=== PATIENT | female | born 2000 | race African-American/Black ===

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

== ENCOUNTER 2020-03-28 09:34 | Emergency (ER) | payer OTHER ==
[~2020-03-28] VITALS: Ht 154.9 cm; Wt 54.4 kg
[~2020-03-28 09:34] MED LIST: IRON325 PO; MOBIC7.5 MG PO; PHENERGAN 25 MG25 M1 PO
[2020-03-28 10:04] LABS: HEMATOCRIT 28.9 % (37.0-47.0); HEMOGLOBIN 8.9 gm/dL (12.0-15.0); MCH 20.6 pg (26.0-34.0); MCHC 30.7 g/dL (28.0-37.0); MCV 67.3 fL (80.0-100.0); PLATELET COUNT 343 thou/uL (150-400); RDW 17.3 % (10.5-14.5); WBC 6.7 thou/uL (4.0-11.0)
[2020-03-28 10:24] LABS: URINE CLARITY CLOUDY; URINE COLOR RED
[2020-03-28 10:26] LABS: CREATININE 0.9 mg/dL (0.6-1.0); POTASSIUM 3.8 mmol/L (3.5-5.1)
[2020-03-28 10:28] LABS: ICTOTEST (BILI CONFIRMATORY) Negative (Negative)
[2020-03-28 10:32] LABS: ALBUMIN 4.1 g/dL (3.4-5.0); TOTAL BILIRUBIN 0.7 mg/dL (0.2-1.0); TOTAL PROTEIN 7.6 g/dL (6.4-8.2)
[2020-03-28 10:35] LABS: URINE REDUCING SUBSTANCE Negative
[2020-03-28 10:42] LABS: SSA (PROTEIN CONFIRMATORY) 3+ (APPROX. 200-500) mg/dL (Negative)
[2020-03-28 10:44] LABS: SQUAMOUS 4-10 Moderate /LPF (0-3); URINE RBC >20 Many /HPF (0-2); URINE WBC-REFLEX 6-15 Few /HPF (0-5)
[2020-03-28 10:45] LABS: CASTS None Seen /LPF (None Seen); CRYSTALS None Seen /LPF (None Seen)
[2020-03-28 10:46] LABS: WBC CLUMPS Few (None Seen)
[2020-03-28 11:03] LABS: ABSOLUTE NEUTROPHILS 5.2 thou/uL (1.4-8.2); ANISOCYTOSIS 2+; HYPOCHROMASIA 2+; MICROCYTES 2+; PLATELET ESTIMATE NORMAL
[2020-03-28 11:04] LABS: OVALOCYTES OCCASIONAL; POIKILOCYTOSIS SLIGHT
[2020-03-28] MEDS ORDERED: NAPROSYN500 MG PO (12:04)
[2020-03-28 12:21] VITALS: BP 105/60
== END 2020-03-28 12:21 | disposition home or self-care (01) ==
LOC: ER 09:34
PROVIDERS: Emergency Medicine
DX: N94.6 Dysmenorrhea, unspecified (principal); R10.30 Lower abdominal pain, unspecified

== ENCOUNTER 2020-04-23 14:04 | Emergency (ER) | payer OTHER ==
[~2020-04-23] VITALS: Ht 154.9 cm; Wt 54.4 kg
[~2020-04-23 14:04] MED LIST changes: +NAPROSYN500 MG PO
[2020-04-23 14:22] LABS: URINE BILIRUBIN NEGATIVE (Negative); URINE BLOOD 3+ (Negative); URINE CLARITY CLOUDY; URINE COLOR RED; URINE GLUCOSE-RANDOM* NEGATIVE (Negative); URINE KETONES TRACE (Negative); URINE LEUKOCYTES-REFLEX TRACE (Negative); URINE NITRITE-REFLEX NEGATIVE (Negative); URINE PROTEIN (DIPSTICK) 2+ (Negative); URINE SPECIFIC GRAVITY >= 1.030 (1.005-1.035); URINE UROBILINOGEN 0.2 E.U./dl (0.2-1.0)
[2020-04-23 14:25] LABS: BACTERIA-REFLEX None Seen /HPF (None Seen); CASTS None Seen /LPF (None Seen); CRYSTALS None Seen /LPF (None Seen); SQUAMOUS None Seen /LPF (0-3); URINE RBC >20 Many /HPF (0-2); URINE WBC-REFLEX 6-15 Few /HPF (0-5)
[2020-04-23 15:22] LABS: HEMATOCRIT 28.4 % (37.0-47.0); HEMOGLOBIN 8.9 gm/dL (12.0-15.0); MCH 21.1 pg (26.0-34.0); MCHC 31.4 g/dL (28.0-37.0); MCV 67.1 fL (80.0-100.0); RBC 4.23 mil/uL (4.20-5.00); RDW 17.9 % (10.5-14.5); WBC 5.8 thou/uL (4.0-11.0)
[2020-04-23 15:31] LABS: CALCIUM 8.6 mg/dL (8.5-10.1); CREATININE 0.9 mg/dL (0.6-1.0); POTASSIUM 3.6 mmol/L (3.5-5.1)
[2020-04-23] MEDS ORDERED: TORADOL 10 MG T10 MG PO (15:51)
[2020-04-23] MEDS ORDERED: KEFLEX500 M1 PO (15:53)
[2020-04-23 16:28] VITALS: BP 104/56
== END 2020-04-23 16:29 | disposition home or self-care (01) ==
LOC: ER 14:04
PROVIDERS: Physician Assistant
DX: N94.6 Dysmenorrhea, unspecified (principal); N39.0 Urinary tract infection, site not specified; Z90.721 Acquired absence of ovaries, unilateral

== ENCOUNTER 2020-05-18 14:27 | Emergency (ER) | payer OTHER ==
[~2020-05-18] VITALS: Ht 154.9 cm; Wt 54.4 kg
[~2020-05-18 14:27] MED LIST changes: +KEFLEX500 M1 PO; +TORADOL 10 MG T10 MG PO
[2020-05-18 14:40] LABS: URINE BILIRUBIN NEGATIVE (Negative); URINE BLOOD 3+ (Negative); URINE CLARITY CLOUDY; URINE COLOR YELLOW; URINE GLUCOSE-RANDOM* NEGATIVE (Negative); URINE KETONES TRACE (Negative); URINE LEUKOCYTES-REFLEX NEGATIVE (Negative); URINE NITRITE-REFLEX NEGATIVE (Negative); URINE PROTEIN (DIPSTICK) 1+ (Negative); URINE SPECIFIC GRAVITY 1.015 (1.005-1.035); URINE UROBILINOGEN 0.2 E.U./dl (0.2-1.0)
[2020-05-18 14:53] LABS: BACTERIA-REFLEX 1-9 Few /HPF (None Seen); CASTS None Seen /LPF (None Seen); CRYSTALS None Seen /LPF (None Seen); SQUAMOUS None Seen /LPF (0-3); URINE RBC >20 Many /HPF (0-2); URINE WBC-REFLEX 6-15 Few /HPF (0-5)
[2020-05-18 17:44] LABS: ABSOLUTE NEUTROPHILS 7.1 thou/uL (1.4-8.2); BASOPHILS 0.9 % (0.0-2.0); HEMATOCRIT 30.6 % (37.0-47.0); HEMOGLOBIN 9.5 gm/dL (12.0-15.0); LYMPHOCYTES 9.1 % (24.0-44.0); MCHC 30.9 g/dL (28.0-37.0); MCV 67.8 fL (80.0-100.0); MONOCYTES 5.7 % (1.0-8.0); PLATELET COUNT 348 thou/uL (150-400); POLYS 84.3 % (36.0-66.0); RBC 4.51 mil/uL (4.20-5.00); RDW 17.7 % (10.5-14.5); WBC 8.4 thou/uL (4.0-11.0)
[2020-05-18 17:50] LABS: CALCIUM 9.4 mg/dL (8.5-10.1); CREATININE 0.8 mg/dL (0.6-1.0); POTASSIUM 3.8 mmol/L (3.5-5.1)
[2020-05-18 17:57] LABS: ALBUMIN 4.2 g/dL (3.4-5.0); TOTAL BILIRUBIN 0.7 mg/dL (0.2-1.0); TOTAL PROTEIN 7.9 g/dL (6.4-8.2)
[2020-05-18] MEDS ORDERED: TORADOL 10 MG T10 MG PO (18:04)
[2020-05-18] MEDS ORDERED: KEFLEX500 M1 PO (18:04)
[2020-05-18] MEDS ORDERED: ONDANSETRON HCL4 M2 PO (18:04)
[2020-05-18 18:12] LABS: PLATELET ESTIMATE NORMAL
[2020-05-18 18:13] LABS: ANISOCYTOSIS 1+; HYPOCHROMASIA 1+; MICROCYTES 2+
[2020-05-18 18:16] VITALS: BP 99/68
--- NOTE | 2020-05-19 08:49 | EKG ---
[facility] [place] [address] ELECTROCARDIOGRAM REPORT Name: ROGERIO YEBOAH Room #: [id number] Admission: 05/18/20 Attend Phys: Discharge: 05/18/20 Date of : [birth year] Report #: [id number] THIS REPORT FOR: cc: [place] - Claudia family physician/PCP ROOSEV[place]T - Claudia family physician/PCP Vincent Christensen MD [facility] THIS REPORT FOR: //name// [facility] ED Test Date: 2020-05-18 Test Time: 18:12:33 Pat Name: ROGERIO YEBOAH Department: Room: Gender: F [employer] Supervisor: : 2000 Requested By: Jacquelyn Nava Order Number: [id number] MD: Vincent Christensen Measurements Intervals [place] Rate: 75 P: 49 CA: 131 QRS: 59 QRSD: 123 T: 33 QT: 409 QTc: 457 Interpretive Statements Sinus arrhythmia Right ventricular conduction delay No previous ECG available for comparison Electronically Signed On 05-19-2020 8:49:42 CDT by Vincent Christensen [email or web address] <ELECTRONICALLY SIGNED> By: Vincent Christensen MD, FAC 05/19/20 0849 11 11 Vincent Christensen MD, [facility] /EPI
== END 2020-05-18 18:17 | disposition home or self-care (01) ==
LOC: ER 14:27
PROVIDERS: Physician Assistant
DX: N39.0 Urinary tract infection, site not specified (principal); N94.6 Dysmenorrhea, unspecified; R11.2 Nausea with vomiting, unspecified; R55 Syncope and collapse; R06.02 Shortness of breath; Z90.721 Acquired absence of ovaries, unilateral; Z79.899 Other long term (current) drug therapy; Z79.2 Long term (current) use of antibiotics

== ENCOUNTER 2020-05-31 13:28 | Emergency (ER) | payer OTHER ==
[~2020-05-31] VITALS: Ht 154.9 cm; Wt 54.4 kg
[~2020-05-31 13:28] MED LIST changes: +ONDANSETRON HCL4 M2 PO
[2020-05-31 13:37] VITALS: BP 99/55
[2020-05-31] MEDS ORDERED: DIFLUCAN150 MG PO (15:23)
== END 2020-05-31 16:10 ==
LOC: ER 13:28
DX: B37.3 Candidiasis of vulva and vagina (principal); L73.9 Follicular disorder, unspecified; Z90.721 Acquired absence of ovaries, unilateral; Z79.899 Other long term (current) drug therapy; Z79.2 Long term (current) use of antibiotics

== ENCOUNTER 2020-08-06 06:32 | Emergency (ER) | payer OTHER ==
[~2020-08-06] VITALS: Ht 154.9 cm; Wt 47.6 kg
[~2020-08-06 06:32] MED LIST changes: +DIFLUCAN150 MG PO
[2020-08-06 07:02] LABS: ABSOLUTE NEUTROPHILS 2.6 thou/uL (1.4-8.2); BASOPHILS 1.4 % (0.0-2.0); EOSINOPHILS 0.6 % (0.0-3.0); HEMOGLOBIN 9.5 gm/dL (12.0-15.0); LYMPHOCYTES 27.7 % (24.0-44.0); MCH 21.1 pg (26.0-34.0); MCHC 30.7 g/dL (28.0-37.0); MCV 68.8 fL (80.0-100.0); MONOCYTES 9.2 % (1.0-8.0); PLATELET COUNT 363 thou/uL (150-400); POLYS 61.1 % (36.0-66.0); RDW 18.2 % (10.5-14.5); WBC 4.3 thou/uL (4.0-11.0)
[2020-08-06 07:16] LABS: CALCIUM 9.3 mg/dL (8.5-10.1); CREATININE 0.9 mg/dL (0.6-1.0); POTASSIUM 3.3 mmol/L (3.5-5.1)
[2020-08-06 07:22] LABS: ALBUMIN 4.2 g/dL (3.4-5.0); TOTAL BILIRUBIN 0.5 mg/dL (0.2-1.0); TOTAL PROTEIN 8.1 g/dL (6.4-8.2)
[2020-08-06 07:40] LABS: URINE BILIRUBIN NEGATIVE (Negative); URINE BLOOD 3+ (Negative); URINE GLUCOSE-RANDOM* NEGATIVE (Negative); URINE KETONES NEGATIVE (Negative); URINE LEUKOCYTES-REFLEX TRACE (Negative); URINE NITRITE-REFLEX NEGATIVE (Negative); URINE PROTEIN (DIPSTICK) 2+ (Negative); URINE UROBILINOGEN 0.2 E.U./dl (0.2-1.0)
[2020-08-06 07:41] LABS: URINE CLARITY CLOUDY; URINE COLOR RED
[2020-08-06 07:45] LABS: CASTS None Seen /LPF (None Seen); MUCUS 4-6 Moderate strn/LPF (None Seen); SQUAMOUS 4-10 Moderate /LPF (0-3)
[2020-08-06 07:46] LABS: BACTERIA-REFLEX 1-9 Few /HPF (None Seen); CRYSTALS None Seen /LPF (None Seen); URINE RBC >20 Many /HPF (0-2); URINE WBC-REFLEX 0-5 Rare /HPF (0-5)
[2020-08-06 08:31] LABS: OVALOCYTES FEW
[2020-08-06 08:32] LABS: ANISOCYTOSIS 2+; HYPOCHROMASIA 2+; MICROCYTES 2+
[2020-08-06 11:25] VITALS: BP 107/50
== END 2020-08-06 11:26 | disposition home or self-care (01) ==
LOC: ER 06:32
PROVIDERS: Emergency Medicine
DX: R10.31 Right lower quadrant pain (principal); R10.32 Left lower quadrant pain; R11.2 Nausea with vomiting, unspecified; Z79.899 Other long term (current) drug therapy

== ENCOUNTER 2020-08-25 07:36 | Emergency (ER) | payer OTHER ==
[~2020-08-25] VITALS: Ht 154.9 cm; Wt 54.4 kg
[2020-08-25 07:41] VITALS: BP 112/62
[2020-08-25] MEDS ORDERED: NOHOMEMEDICATIONS (07:45)
[2020-08-25] MEDS ORDERED: MOBIC15 MG PO (08:20)
== END 2020-08-25 08:39 | disposition home or self-care (01) ==
LOC: ER 07:36
DX: K06.8 Other specified disorders of gingiva and edentulous alveolar ridge (principal); Z90.721 Acquired absence of ovaries, unilateral

== ENCOUNTER 2020-09-02 07:24 | Emergency (ER) | payer OTHER ==
[~2020-09-02] VITALS: Ht 154.9 cm; Wt 54.4 kg
[~2020-09-02 07:24] MED LIST changes: +MOBIC15 MG PO; +NOHOMEMEDICATIONS
[2020-09-02 07:58] LABS: URINE BILIRUBIN NEGATIVE (Negative); URINE BLOOD 3+ (Negative); URINE CLARITY CLOUDY; URINE COLOR RED; URINE GLUCOSE-RANDOM* NEGATIVE (Negative); URINE KETONES NEGATIVE (Negative); URINE LEUKOCYTES-REFLEX TRACE (Negative); URINE NITRITE-REFLEX POSITIVE (Negative); URINE PROTEIN (DIPSTICK) 3+ (Negative); URINE SPECIFIC GRAVITY >= 1.030 (1.005-1.035); URINE UROBILINOGEN 0.2 E.U./dl (0.2-1.0)
[2020-09-02 08:14] LABS: BACTERIA-REFLEX 1-9 Few /HPF (None Seen); CASTS None Seen /LPF (None Seen); CRYSTALS None Seen /LPF (None Seen); SQUAMOUS 4-10 Moderate /LPF (0-3); URINE RBC >20 Many /HPF (0-2); URINE WBC-REFLEX 6-15 Few /HPF (0-5)
[2020-09-02 09:40] VITALS: BP 122/64
== END 2020-09-02 09:41 | disposition home or self-care (01) ==
LOC: ER 07:24
PROVIDERS: Emergency Medicine
DX: N94.6 Dysmenorrhea, unspecified (principal)

== ENCOUNTER 2020-10-24 08:56 | Emergency (ER) | payer OTHER ==
[~2020-10-24] VITALS: Ht 154.9 cm; Wt 54.4 kg
[2020-10-24 10:47] LABS: URINE BILIRUBIN NEGATIVE (Negative); URINE BLOOD 3+ (Negative); URINE CLARITY SL CLOUDY; URINE COLOR YELLOW; URINE GLUCOSE-RANDOM* NEGATIVE (Negative); URINE KETONES NEGATIVE (Negative); URINE LEUKOCYTES-REFLEX NEGATIVE (Negative); URINE NITRITE-REFLEX NEGATIVE (Negative); URINE PROTEIN (DIPSTICK) NEGATIVE (Negative); URINE UROBILINOGEN 0.2 E.U./dl (0.2-1.0)
[2020-10-24 11:05] LABS: CASTS None Seen /LPF (None Seen); CRYSTALS None Seen /LPF (None Seen); SQUAMOUS 4-10 Moderate /LPF (0-3)
[2020-10-24 11:08] LABS: URINE RBC >20 Many /HPF (0-2)
[2020-10-24 11:09] LABS: BACTERIA-REFLEX 1-9 Few /HPF (None Seen); URINE WBC-REFLEX None Seen /HPF (0-5)
[2020-10-24] MEDS ORDERED: TORADOL 10 MG T10 MG PO (11:29)
[2020-10-24] MEDS ORDERED: ONDANSETRON HCL4 M2 PO (11:29)
[2020-10-24 11:38] VITALS: BP 109/66
== END 2020-10-24 11:40 | disposition home or self-care (01) ==
LOC: ER 08:56
PROVIDERS: Physician Assistant
DX: N92.1 Excessive and frequent menstruation with irregular cycle (principal)

== ENCOUNTER 2020-10-31 16:32 | Emergency (ER) | payer OTHER ==
[~2020-10-31] VITALS: Ht 154.9 cm; Wt 54.4 kg
[2020-10-31] MEDS ORDERED: AMOXICILLIN500 M1 PO (17:22)
[2020-10-31 17:52] VITALS: BP 108/72
== END 2020-10-31 17:52 | disposition home or self-care (01) ==
LOC: ER 16:32
DX: K04.7 Periapical abscess without sinus (principal); Z90.721 Acquired absence of ovaries, unilateral

== ENCOUNTER → 2021-04-23 | Emergency (ER) | payer OTHER ==
[~2021-04-23] VITALS: Ht 154.9 cm; Wt 54.4 kg
[~2021-04-23] MED LIST changes: +AMOXICILLIN500 M1 PO
[2021-04-23 07:32] LABS: ABSOLUTE NEUTROPHILS 1.8 thou/uL (1.4-8.2); EOSINOPHILS 0.8 % (0.0-3.0)
[2021-04-23 07:35] LABS: BASOPHILS 1.5 % (0.0-2.0); HEMATOCRIT 31.6 % (37.0-47.0); HEMOGLOBIN 9.8 gm/dL (12.0-15.0); LYMPHOCYTES 32.3 % (24.0-44.0); MCH 22.3 pg (26.0-34.0); MCV 72.1 fL (80.0-100.0); PLATELET COUNT 362 thou/uL (150-400); POLYS 51.4 % (36.0-66.0); RBC 4.39 mil/uL (4.20-5.00); RDW 15.7 % (10.5-14.5); WBC 3.4 thou/uL (4.0-11.0)
[2021-04-23 07:57] LABS: CALCIUM 9.1 mg/dL (8.5-10.1); CREATININE 0.9 mg/dL (0.6-1.0); POTASSIUM 3.6 mmol/L (3.5-5.1); TOTAL BILIRUBIN 0.7 mg/dL (0.2-1.0); TOTAL PROTEIN 7.7 g/dL (6.4-8.2)
[2021-04-23 08:16] LABS: URINE BILIRUBIN NEGATIVE (Negative); URINE BLOOD 3+ (Negative); URINE CLARITY CLOUDY; URINE GLUCOSE-RANDOM* NEGATIVE (Negative); URINE KETONES 2+ (Negative); URINE LEUKOCYTES-REFLEX NEGATIVE (Negative); URINE NITRITE-REFLEX NEGATIVE (Negative); URINE PROTEIN (DIPSTICK) 1+ (Negative); URINE SPECIFIC GRAVITY 1.015 (1.005-1.035); URINE UROBILINOGEN 0.2 E.U./dl (0.2-1.0)
[2021-04-23 08:19] LABS: URINE COLOR PINK
[2021-04-23 08:51] VITALS: BP 95/51
[2021-04-23 09:07] LABS: CASTS None Seen /LPF (None Seen); CRYSTALS None Seen /LPF (None Seen); SQUAMOUS 4-10 Moderate /LPF (0-3); URINE RBC >20 Many /HPF (NONE SEEN)
[2021-04-23 09:08] LABS: BACTERIA-REFLEX 1-9 Few /HPF (None Seen); URINE WBC-REFLEX 6-15 Few /HPF (0-5)
[2021-04-23 09:33] LABS: HYPOCHROMASIA 2+; MICROCYTES 1+
[2021-04-23 09:34] LABS: ANISOCYTOSIS 1+
== END ==
LOC: ER 06:51
PROVIDERS: Emergency Medicine Emergency Medical Services
DX: N94.6 Dysmenorrhea, unspecified (principal); Z87.42 Personal history of other diseases of the female genital tract

== ENCOUNTER 2021-05-18 08:31 | Emergency (ER) | payer OTHER ==
[~2021-05-18] VITALS: Ht 154.9 cm; Wt 54.4 kg
[2021-05-18 09:21] LABS: URINE BILIRUBIN NEGATIVE (Negative); URINE BLOOD 3+ (Negative); URINE CLARITY CLOUDY; URINE COLOR YELLOW; URINE GLUCOSE-RANDOM* NEGATIVE (Negative); URINE KETONES NEGATIVE (Negative); URINE LEUKOCYTES-REFLEX NEGATIVE (Negative); URINE NITRITE-REFLEX NEGATIVE (Negative); URINE PROTEIN (DIPSTICK) TRACE (Negative); URINE SPECIFIC GRAVITY 1.015 (1.005-1.035); URINE UROBILINOGEN 0.2 E.U./dl (0.2-1.0)
[2021-05-18 09:32] LABS: BACTERIA-REFLEX 1-9 Few /HPF (None Seen); CASTS None Seen /LPF (None Seen); CRYSTALS None Seen /LPF (None Seen); SQUAMOUS 4-10 Moderate /LPF (0-3); URINE RBC >20 Many /HPF (NONE SEEN); URINE WBC-REFLEX 6-15 Few /HPF (0-5)
[2021-05-18 09:57] LABS: ABSOLUTE NEUTROPHILS 4.3 thou/uL (1.4-8.2); BASOPHILS 0.9 % (0.0-2.0); EOSINOPHILS 1.1 % (0.0-3.0); HEMATOCRIT 31.9 % (37.0-47.0); HEMOGLOBIN 9.9 gm/dL (12.0-15.0); LYMPHOCYTES 15.7 % (24.0-44.0); MCH 22.3 pg (26.0-34.0); MCHC 31.1 g/dL (28.0-37.0); MCV 71.6 fL (80.0-100.0); MONOCYTES 9.2 % (1.0-8.0); PLATELET COUNT 406 thou/uL (150-400); POLYS 73.1 % (36.0-66.0); RBC 4.45 mil/uL (4.20-5.00); RDW 16.4 % (10.5-14.5); WBC 5.9 thou/uL (4.0-11.0)
[2021-05-18 10:06] LABS: CALCIUM 9.4 mg/dL (8.5-10.1); POTASSIUM 3.5 mmol/L (3.5-5.1)
[2021-05-18 10:41] LABS: ANISOCYTOSIS 2+; PLATELET ESTIMATE NORMAL
[2021-05-18 10:42] LABS: MICROCYTES 2+; POLYCHROMASIA SLIGHT
[2021-05-18 12:24] VITALS: BP 97/58
== END 2021-05-18 12:24 | disposition home or self-care (01) ==
LOC: ER 08:31
PROVIDERS: Emergency Medicine
DX: N94.6 Dysmenorrhea, unspecified (principal)